=== PATIENT | female | born 2000 | race African-American/Black ===

== ENCOUNTER 2024-08-27 17:49 | Emergency (ER) | payer BC ==
--- OUTSIDE RECORDS SUMMARY | 2024-08-27 17:56 | XMS REPORT | Continuity of Care Document ---
Author Name Unknown Address [address] [facility] [address] [place] [address] [facility] Address [address] [facility] [address] [place] [address] Care Team Providers Care Wearing Apparel Shaker Name Role Phone BOBBI DUDLEY Primary Care Physician Unavailab DR BOBBI Alcantara Attending Clinician Unavailable [phone] Attending Clinician Unavailable DIANE, DR AZUL Attending Clinician Unavailable DR JORGE ALBERTO CONTRERAS Attending Clinician Unavailable ATILIO, DR FINCH Attending Clinician Unavailable DR GERALD SHEPHERD Attending Clinician Unavailable DR LUDY BHAGAT Attending Clinician Unavailable DR BOBBI DUDLEY Admitting Clinician Unavailable DIANE, DR AZUL Admitting Clinician Unavailable ATILIO, DR FINCH Admitting Clinician Unavailable DR GERALD SHEPHERD Admitting Clinician Unavailable OLAYINKA, DR BOSTON Admitting Clinician Unavailable Payers Payer Name Policy Type Policy Number Effective Date Expirati on Date Source [facility] [id number] 2023 00:00:00 Allergies, Adverse Reactions, Alerts Allergy Name Allergy Type Status Severity Reaction(s) Onset Date Inactive Date Treating Clinician Comments Source No Known Allergie s DA Active Unknown 12-15 00:00: 00 [facility] No Known Drug Allergie s MA Active UNKNOWN [facility] Vital Signs Vital Name Observation Time Observation Value Comments S ource Height 2023-08-03 10:41:00 170.18 CM Weight 2023-08-03 10:41:00 81.8 KG Height 2020-11-07 07:40:00 170.18 CM Weight 2020-11-07 07:40:00 99.79 KG Weight 2020-02-20 19:15:00 99.79 KG Height 2020-02-05 10:47:00 167.64 CM Weight 2020-02-05 10:47:00 90.71 KG Encounters Start Date/Time End Date/Time Encounter Type Admission Type Attending [facility] Care Department Encounter ID Source 2022-04-08 09:25:03 Outpatient BOBBI DUDLEY [id number] [facility] [id number] [facility] 2022-01-15 17:26:53 Outpatient BOBBI DUDLEY [id number] [facility] [id number] [facility] 2023-08-03 10:35:00 2023-08-03 12:08:00 Outpatient E JORGE ALBERTO CONTRERAS [facility] [id number] [facility] 2023-08-03 10:35:00 2023-08-03 10:35:00 Outpatient E [facility] [id number] [facility] 2022-01-15 17:35:00 2022-01-15 18:43:00 Outpatient BOBBI SANZ [id number] [facility] SELMA GRANGER [id number] [facility] 2020-11-07 07:39:00 2020-11-07 08:50:00 Outpatient E JOSETTE TRIMBLE [facility] [id number] [facility] 2020-02-20 18:18:00 2020-02-20 21:08:00 Outpatient E GERALD SHEPHERD [facility] [id number] [facility] 2020-02-05 10:37:00 2020-02-05 12:20:00 Outpatient E LUDY BHAGAT [facility] [id number] [facility] Results Test Description Test Time Test Comments Results Result Co mments Source INFLUENZA A AND B OW2023-08-03 11:23:00* Test Item Value Reference Range Interpretation Comme nts INFLUENZ A (test code = INFA) NEGATIVE NEGATIVE INFLUENZ B (test code = INFB) NEGATIVE NEGATIVE DIRECT STREP GROUP AOW2023-08-03 11:23:00* Test Item Value Reference Range Interpretation Comme nts Strep A Ag (test code = STREP) NEGATIVE NEGATIVE SARS-CoV (RAPID ANTIGEN) WH2020-11-07 08:17:00* Test Item Value Reference Range Interpretation Comme nts SARS-CoV (ANTIGEN) (test code = COVAG) NEGATIVE NEGATIVE COVID AG (test code = COVAGC) This test has been marketed under the FDA Emergency Use Authorization (EUA) to meet challenges of the COVID-19 pandemic. The validation standards normally enforced by the FDA and the College of the [place] [employer] (CAP) are more stringent than those required for this test. Therefore, the result should be interpreted with caution and close attention to other clinical and epidemiological data DIRECT STREP GROUP AOW2020-11-07 08:08:00* Test Item Value Reference Range Interpretation Comme nts Strep A Ag (test code = STREP) NEGATIVE NEGATIVE SARS-CoV (RAPID ANTIGEN) WH2020-02-20 20:57:00* Test Item Value Reference Range Interpretation Comme nts SARS-CoV (ANTIGEN) (test code = COVAG) NEGATIVE NEGATIVE COVID AG (test code = COVAGC) This test has been marketed under the FDA Emergency Use Authorization (EUA) to meet challenges of the COVID-19 pandemic. The validation standards normally enforced by the FDA and the College of the [place] [employer] (CAP) are more stringent than those required for this test. Therefore, the result should be interpreted with caution and close attention to other clinical and epidemiological data INFLUENZA A AND B OW2020-02-20 19:59:00* Test Item Value Reference Range Interpretation Comme nts INFLUENZ A (test code = INFA) NEGATIVE NEGATIVE INFLUENZ B (test code = INFB) NEGATIVE NEGATIVE DIRECT STREP GROUP AOW2020-02-20 19:59:00* Test Item Value Reference Range Interpretation Comme nts STREP A AG (test code = STREP) NEGATIVE NEGATIVE BRAIN NATRIURETIC PEPTIDE OW2020-02-05 11:51:00* Test Item Value Reference Range Interpretation Comme nts BNP (test code = OBNP) <5 pg/mL <=100 SARS-CoV (RAPID ANTIGEN) WH2020-02-05 11:50:00* Test Item Value Reference Range Interpretation Comme nts SARS-CoV (ANTIGEN) (test code = COVAG) NEGATIVE NEGATIVE COVID AG (test code = COVAGC) This test has been marketed under the FDA Emergency Use Authorization (EUA) to meet challenges of the COVID-19 pandemic. The validation standards normally enforced by the FDA and the College of the [place] [employer] (CAP) are more stringent than those required for this test. Therefore, the result should be interpreted with caution and close attention to other clinical and epidemiological data [employer] 8 Panel *OW* [id number] 11:44:00* Test Item Value Reference Range Interpretation Comme nts GLUCOSE (test code = GGUL) 142 mg/dL 73-118 H BUN (test code = GBUN) 13 mg/dL 7-22 CREATININE (test code = GCRE) 0.9 mg/dL 0.6-1.2 CK TOTAL (test code = GCK) 171 U/L 30-190 SODIUM (test code = GNA+) 138 mmol/L 128-145 POTASSIUM (test code = GK+) 3.9 mmol/L 3.6-5.1 CHLORIDE (test code = GCL-) 104 mmol/L 98-108 TCO2 (test code = GTC02) 26 mmol/L 18-33 URINE OW2020-02-05 11:42:00* Test Item Value Reference Range Interpretation Comme nts PREG UR (test code = PGU) Negative NEGATIVE D-DIMER TRIAGE OW2020-02-05 11:40:00* Test Item Value Reference Range Interpretation Comme nts D-DIMER (test code = GDDI) 124 ng/mL D-DU <=599 D-DIMER COMMENT (test code = DDCOM) *Level to rule out DVT or PE: <235 ng/mL D-DU* INFLUENZA A AND B OW2020-02-05 11:32:00* Test Item Value Reference Range Interpretation Comme nts INFLUENZ A (test code = INFA) NEGATIVE NEGATIVE INFLUENZ B (test code = INFB) NEGATIVE NEGATIVE GENERAL CHEMISTRY 13 *OW* [id number] 11:29:00* Test Item Value Reference Range Interpretation Comme nts GLUCOSE (test code = GGUL) 143 mg/dL 73-118 H BUN (test code = GBUN) 12 mg/dL 7-22 CREATININE (test code = GCRE) 0.9 mg/dL 0.6-1.2 URIC ACID (test code = GUA) 4.1 mg/dL 2.2-6.6 CALCIUM (test code = GCL+) 9.6 mg/dL 8.0-10.3 ALBUMIN (test code = GALB) 4.0 g/dL 3.5-5.5 PROTEIN (test code = GTP) 7.4 g/dL 6.4-8.1 ALT (test code = GALT) 7 U/L 10-47 L AST (test code = LACEY) 22 U/L 11-38 ALK PHOS (test code = GALP) 55 U/L 42-141 BILI TOTAL (test code = GTBIL) 0.8 mg/dL 0.2-1.6 GGT (test code = GGGT) 17 U/L 5-65 AMYLASE (test code = GAMY) 50 U/L 14-97 DIRECT STREP GROUP AOW2020-02-05 11:28:00* Test Item Value Reference Range Interpretation Comme nts STREP A AG (test code = STREP) NEGATIVE NEGATIVE URINALYSIS W/O MICROSCOPICOW2020-02-05 11:26:00* Test Item Value Reference Range Interpretation Comme nts COLOR (test code = COLU) Yellow YELLOW CLARITY (test code = CLA) Clear CLEAR GLUCOSE UR (test code = UA GLUCOSE) Negative NEGATIVE BILI UR (test code = BILE) Negative NEGATIVE KETONES UR (test code = RENITA) Negative NEGATIVE SP GRAVITY (test code = SPGR) >=1.030 1.005-1.030 PH UR (test code = PH) 6.0 4.5-8.0 PROTEIN UR (test code = PU) Negative NEGATIVE NITRITE UR (test code = NITRITE) Negative NEGATIVE UROBIL UR (test code = GUROQ) 1.0 E.U./dL UROBIL UR (test code = GUROQC) UROBILINOGEN REFERENCE RANGE 0.2 - 1.0 EU/dL BLOOD UR (test code = UA BLOOD) 1+ NEGATIVE A LEUK ES UR (test code = LEUK) Negative NEGATIVE CBC (INCLUDES AUTOMATED DIFFERENTIAL) *2020-02-05 11:21:00* Test Item Value Reference Range Interpretation Comme nts WBC (test code = WBC) 5.0 10\S\3/uL 4.5-11.0 RBC (test code = RBC) 4.37 10\S\6/uL 4.30-5.70 HGB (test code = HBG) 14.0 g/dL 12.0-15.5 HCT (test code = HCT) 42.9 % 35.0-44.0 MCV (test code = MCV) 98.2 fL 81.0-99.0 MCH (test code = MCH) 32.0 pg 27.0-31.0 H MCHC (test code = MCHC) 32.6 g/dL 32.0-36.0 RDW (test code = RDW) 13.6 % 11.5-14.5 PLT (test code = PLT) 268 10\S\3/uL 130-400 MPV (test code = OMPV) 8.5 fL 6.2-10.2 NEUTROP # (test code = NE#) 2.3 10\S\3/uL 1.6-8.0 LYMPH # (test code = LY#) 2.1 10\S\3/uL 1.1-3.5 MID # (test code = GMID#) 0.6 10\S\3/uL 0.0-1.1 GRA % (test code = GRA%) 46.6 % 35.0-73.0 LYMPH % (test code = GLY%) 42.3 % 20.0-55.0 MID % (test code = GMID%) 11.1 % 0.0-10.0 H XR ANKLE LEFT COMPLETE 3 VIEWS *WW*2016-12-15 13:26:38EXAM: XR ANKLE 3 VIEWS, LEFTINDICATION: PainCOMPARISON: None availableTECHNIQUE: AP, lateral and oblique views of the left ankle.FINDINGS: No acute fracture or dislocation is identified. The joint spaces aremaintained. The ankle mortise is preserved. No soft tissue abnormality isidentified.IMPRESSION: No acute osseous abnormality of the left ankle.LOCATION: B2
[2024-08-27] MEDS ORDERED: LIDOCAINE VISCOUS 2% 10ML ORAL SOLN ONE (18:34)
[2024-08-27] MEDS ORDERED: dexAMETHasone 10 MG/ML VIAL ONE (18:34)
[2024-08-27] MEDS ORDERED: IBUPROFEN 400 MG TAB ONE (18:34)
[2024-08-27 19:15] LABS: SARS-CoV-2 Antigen CONTROL BLUE LINE VIS/BG OK; SARS-CoV-2 Antigen Rapid Res Negative (Negative)
--- NOTE | 2024-08-27 19:17 | EDPHYS ---
Physician Documentation [facility] Name: Jose Rafael Woodall Age: 24 yrs Sex: Female : 2000 Arrival Date: 08/27/2024 Time: 17:49 Bed 13 Private MD: ED Physician Robinson Chacon HPI: 08/27 18:08 This 24 yrs old Black Female presents to ER via Ambulatory with complaints of Sore ec2 Throat. 18:08 Patient arrives today for sore throat. Patient reports has been having sore throat that ec2 is worsened over the past several days. Reports congestion as well as cough. No fevers or vomiting.. Historical: - Allergies: 17:58 No Known Allergies; ll1 - Home Meds: 17:58 None [Active]; ll1 - PMHx: 17:58 None; ll1 - PSHx: 17:58 None; ll1 - Immunization history:: Adult Immunizations up to date. - Infectious Disease History:: Denies. - Social history:: Smoking status: Patient denies any tobacco usage or history of. ROS: 18:09 Constitutional: as per hpi ec2 Exam: 18:09 Constitutional: GEN: NAD Head: atraumatic Eyes: EOMI Ears: External ears are normal. ec2 Mouth: Posterior pharyngeal erythema without exudates present. CV: regular rate LUNGS: no respiratory distress ABD: non-distended SKIN: no evidence of rashes MSK: no evidence of trauma Vital Signs: 17:58 BP 141 / 93; Pulse 60; Resp 16; Temp 97.6; Pulse Ox 100% ; Weight 81.65 kg; Height 5 ll1 ft. 7 in. ; Pain 10/10; 19:05 BP 144 / 89; Pulse 65; Resp 17; Temp 98.2(O); Pulse Ox 99% on R/A; rg5 17:58 Body Mass Index 28.19 (81.65 kg, 170.18 cm) ll1 17:58 Pain Scale: Adult ll1 MDM: 17:56 Medical Screening Exam initiated ec2 18:09 Data reviewed: vital signs, nurses notes. ED course: Patient arrives today for ec2 evaluation of sore throat. Examination is revealing for nontoxic individual who is hemodynamically stable. Will obtain viral swab and strep swab. Suspect pharyngitis. Possible viral versus bacterial. 19:16 ED course: Strep swab negative, will d/c to home with symptomatic management for viral ec2 infection. Return precautions given.. 02 17:56 Order name: Influenza Screen (a \T\ B); Complete Time: 19:17 ec2 02 17:56 Order name: SARS RAPID; Complete Time: 19:16 ec2 08/27 17:56 Order name: Strep; Complete Time: 19:16 ec2 08/27 19:18 Order name: Throat Culture EDMS Administered Medications: 18:08 CANCELLED (Physician Discretion): mg IM once ec2 18:45 Drug: Dexamethasone IM 10 mg IM once Route: IM; Site: right deltoid; ph 19:28 Follow up: Response: No adverse reaction; Pain is decreased rg5 18:45 Drug: Lidocaine Mucous Membrane Gel 2 % 1 ea 15 ml Mucous Membrane once Volume: 15 ml; ph Route: Mucous Membrane; 18:45 Drug: Ibuprofen PO 800 mg PO once Route: PO; ph 19:27 Follow up: Response: No adverse reaction; Pain is decreased rg5 Disposition Summary: 08/27/24 19:16 Discharge Ordered Notes: Location: Home ec2 Condition: Stable ec2 Diagnosis - Viral infection, unspecified ec2 Followup: ec2 - With: Private Physician - When: - Reason: Recheck today's complaints Discharge Instructions: - Discharge Summary Sheet ec2 - Viral Illness, Adult ec2 Forms: - Medication Reconciliation Form ec2 - Antibiotic Education ec2 - Prescription Opioid Use ec2 - Patient Portal Instructions ec2 - Leadership Thank You Letter ec2 Prescriptions: - Prednisone 20 mg Oral Tablet - take 2 tablets ORAL route once daily for 5 days; 10 tablet; Refills: 0, Product ec2 Selection Permitted Signatures: Dispatcher [employer] EDMS Viola England RN RN ph Heidy Boyd RN RN ll1 Robinson Chacon MD MD ec2 Bernabe Delcid RN rg5 Corrections: (The following items were deleted from the chart) 17:57 17:57 Influenza Screen (A \T\ B)+BA.LAB.BRZ ordered. EDMS EDMS 17:57 17:57 SARS-COV-2 Antigen Rapid+I.LAB.BRZ ordered. EDMS EDMS 17:57 17:57 Group A Streptococcus Rapid Sc+BA.LAB.BRZ ordered. EDMS EDMS 18:08 18:07 Ketorolac IM 15 mg IM once ordered. ec2 ec2
--- NOTE | 2024-08-27 19:17 | ER ---
Nurse's Notes [facility] Name: Jose Rafael Woodall Age: 24 yrs Sex: Female : 2000 Arrival Date: 08/27/2024 Time: 17:49 Bed 13 Private MD: Diagnosis: Viral infection, unspecified Presentation: 08/27 17:58 Chief complaint: Patient states: Sore throat and R ear pain since last night. ll1 Coronavirus screen: Client denies travel out of the [place] in the last 14 days. sore throat, Client presents with at least one sign or symptom that may indicate coronavirus-19. Standard/surgical mask placed on the client. Ebola Screen: Patient denies travel to an Ebola-affected area in the 21 days before illness onset. Initial Sepsis Screen: Does the patient meet any 2 criteria? No. Patient's initial sepsis screen is negative. Does the patient have a suspected source of infection? No. Patient's initial sepsis screen is negative. Risk Assessment: Do you want to hurt yourself or someone else? Patient reports no desire to harm self or others. Onset of symptoms was August 26, 2024. 17:58 Method Of Arrival: Ambulatory ll1 17:58 Acuity: NE 4 ll1 Triage Assessment: 18:03 General: Appears ill, Behavior is calm, cooperative, appropriate for age. Pain: ll1 Complains of pain in throat Quality of pain is described as aching. EENT: Reports pain when swallowing had pain to R ear, resolved now. Historical: - Allergies: 17:58 No Known Allergies; ll1 - Home Meds: 17:58 None [Active]; ll1 - PMHx: 17:58 None; ll1 - PSHx: 17:58 None; ll1 - Immunization history:: Adult Immunizations up to date. - Infectious Disease History:: Denies. - Social history:: Smoking status: Patient denies any tobacco usage or history of. Screenin:[address] [facility] ED Fall Risk Assessment (Adult) History of falling in the last 3 months, ph including since admission No falls in past 3 months (0 pts) Confusion or Disorientation No (0 pts) Intoxicated or Sedated No (0 pts) Impaired Gait No (0 pts) Mobility Assist Device Used No (0 pt) Altered Elimination No (0 pt) Score/Fall Risk Level 0 - 2 = Low Risk Oriented to surroundings, Maintained a safe environment, Hourly rounding (assess needs \T\ fall precautionary measures) done. Abuse screen: Denies threats or abuse. Denies injuries from another. Nutritional screening: No deficits noted. Tuberculosis screening: No symptoms or risk factors identified. Assessment: 18:43 General: Appears in no apparent distress. Behavior is calm, cooperative. Pain: ph Complains of pain in throat. Neuro: Level of Consciousness is awake, alert, obeys commands, Oriented to person, place, time, situation. Cardiovascular: Capillary refill < 3 seconds in bilateral fingers Patient's skin is warm and dry. Respiratory: Airway is patent Respiratory effort is even, unlabored, Respiratory pattern is regular, symmetrical, Breath sounds are clear bilaterally. GI: No signs and/or symptoms were reported involving the gastrointestinal system. EENT: Throat is reddened Reports pain when swallowing. Derm: Skin is pink, warm \T\ dry. 19:05 General: Appears in no apparent distress. comfortable, Behavior is calm, cooperative, rg5 appropriate for age. 19:05 Pain: Complains of pain in throat. Neuro: Level of Consciousness is awake, alert, obeys rg5 commands, Oriented to person, place, time, situation. Cardiovascular: Capillary refill Patient's skin is warm and dry. Respiratory: Airway is patent Trachea midline Respiratory effort is even, unlabored, Respiratory pattern is regular, symmetrical. GI: No signs and/or symptoms were reported involving the gastrointestinal system. : No signs and/or symptoms were reported regarding the genitourinary system. EENT: Throat is reddened Reports pain when swallowing. Derm: Skin is intact, Skin is dry, Skin is normal, Skin temperature is warm. Musculoskeletal: Circulation, motion, and sensation intact. Range of motion: intact in all extremities. Vital Signs: 17:58 BP 141 / 93; Pulse 60; Resp 16; Temp 97.6; Pulse Ox 100% ; Weight 81.65 kg; Height 5 ll1 ft. 7 in. ; Pain 10/10; 19:05 BP 144 / 89; Pulse 65; Resp 17; Temp 98.2(O); Pulse Ox 99% on R/A; rg5 17:58 Body Mass Index 28.19 (81.65 kg, 170.18 cm) ll1 17:58 Pain Scale: Adult ll1 ED Course: 17:56 Patient arrived in ED. mr 17:56 Robinson Chacon MD is Attending Physician. ec2 17:58 Arm band placed on. ll1 17:59 Triage completed. ll1 18:05 Viola England RN is Primary Nurse. ph 18:44 Patient has correct armband on for positive identification. Bed in low position. Call ph light in reach. Side rails up X 1. Pulse ox on. NIBP on. Door closed. Noise minimized. Warm blanket given. 18:45 COVID swab sent to lab. Flu and/or RSV swab sent to lab. Strep swab sent to lab. ph 18:45 Strep Sent. ph 18:45 SARS RAPID Sent. ph 18:45 Influenza Screen (a \T\ B) Sent. ph 19:27 Provided Education on: post er care. rg5 19:27 No provider procedures requiring assistance completed. Patient did not have IV access rg5 during this emergency room visit. Administered Medications: 18:08 CANCELLED (Physician Discretion): [id number] mg IM once ec2 18:45 Drug: Dexamethasone IM 10 mg IM once Route: IM; Site: right deltoid; ph 19:28 Follow up: Response: No adverse reaction; Pain is decreased rg5 18:45 Drug: Lidocaine Mucous Membrane Gel 2 % 1 ea 15 ml Mucous Membrane once Volume: 15 ml; ph Route: Mucous Membrane; 18:45 Drug: Ibuprofen PO 800 mg PO once Route: PO; ph 19:27 Follow up: Response: No adverse reaction; Pain is decreased rg5 Medication: 18:44 VIS not applicable for this client. ph Outcome: 19:16 Discharge ordered by . ec2 19:41 Discharged to home ambulatory, rg5 19:41 Condition: stable 19:41 Discharge instructions given to patient, Instructed on discharge instructions, Demonstrated understanding of instructions, medications, Prescriptions given X 1, 19:42 Patient left the ED. rg5 Signatures: Estefania Mckoy, Igor Costa mr Viola England RN RN Heidy Boyd RN RN 1 Robinson Chacon MD MD 2 Bernabe Delcid RN RN rg5
[2024-08-27 19:48] VITALS: BP 144/89; TEMP 98.2; O2SAT 99
== END 2024-08-27 19:42 | disposition home or self-care (01) ==
LOC: ER 17:49
DX: B34.9 Viral infection, unspecified (principal); Z11.52 Encounter for screening for COVID-19
CPT/HCPCS: 87070; 36415; 87081; 87804 ×2; 96372; 99284; 87811; J1100

== ENCOUNTER 2024-09-03 19:54 | Emergency (ER) | payer BC ==
--- OUTSIDE RECORDS SUMMARY | 2024-09-03 19:58 | XMS REPORT | Continuity of Care Document ---
Author Name Unknown Address [address] [facility] [address] [place] [address] [facility] Address [address] [facility] [address] [place] [address] Care Team Providers Care Carpenter Streetcar Name Role Phone BOBBI DUDLEY Primary Care Physician Unavailab DR BOBBI Alcantara Attending Clinician Unavailable [phone] Attending Clinician Unavailable DIANE, DR AZUL Attending [...] Number Effective Date Expirati on Date Source [facility] [id number] 2023 00:00:00 Allergies, Adverse Reactions, Alerts Allergy Name Allergy Type Status Severity Reaction(s) Onset Date Inactive Date Treating Clinician Comments Source No Known Allergie s DA Active Unknown 12-15 00:00: 00 [facility] No Known Drug Allergie s MA Active UNKNOWN [facility] Vital Signs Vital Name Observation Time Observation Value Comments S ource Height 2023-08-03 10:41:00 170.18 CM Weight 2023-08-03 10:41:00 81.8 KG Height 2020-11-07 07:40:00 170.18 CM Weight 2020-11-07 07:40:00 99.79 KG Weight 2020-02-20 19:15:00 99.79 KG Height 2020-02-05 10:47:00 167.64 CM Weight 2020-02-05 10:47:00 90.71 KG Encounters Start Date/Time End Date/Time Encounter Type Admission Type Attending [facility] Care Department Encounter ID Source 2022-04-08 09:25:03 Outpatient BOBBI DUDLEY [id number] [facility] [id number] [facility] 2022-01-15 17:26:53 Outpatient BOBBI DUDLEY [id number] [facility] [id number] [facility] 2023-08-03 10:35:00 2023-08-03 12:08:00 Outpatient E JORGE ALBERTO CONTRERAS [facility] [id number] [facility] 2023-08-03 10:35:00 2023-08-03 10:35:00 Outpatient E [facility] [id number] [facility] 2022-01-15 17:35:00 2022-01-15 18:43:00 Outpatient BOBBI SANZ [id number] [facility] SELMA GRANGER [id number] [facility] 2020-11-07 07:39:00 2020-11-07 08:50:00 Outpatient E JOSETTE TRIMBLE [facility] [id number] [facility] 2020-02-20 18:18:00 2020-02-20 21:08:00 Outpatient E GERALD SHEPHERD [facility] [id number] [facility] 2020-02-05 10:37:00 2020-02-05 12:20:00 Outpatient E LUDY BHAGAT [facility] [id number] [facility] Results Test Description Test Time Test Comments [...] the FDA and the [employer] the [employer] (CAP) are more stringent than those [...] the FDA and the [employer] [place] [employer] (CAP) are more stringent than those [...] the FDA and the [employer] (CAP) are more stringent than those required for this test. Therefore, the result should be interpreted with caution and close attention to other clinical and epidemiological data [employer] 8 Panel *OW* [id number] 11:44:00* Test Item Value Reference Range Interpretation [...] INFB) NEGATIVE NEGATIVE GENERAL CHEMISTRY 13 *OW* [id number] 11:29:00* Test Item Value Reference Range Interpretation [...]
[2024-09-03] MEDS ORDERED: NA CHLORIDE 0.9% 1,000 ML ONE (20:13)
[2024-09-03] MEDS ORDERED: ONDANSETRON 4 MG/2 ML VIAL ONE (20:13)
[2024-09-03] MEDS ORDERED: KETOROLAC 30 MG/ML INJ ONE (20:13)
[2024-09-03 20:53] LABS: SARS-CoV-2 Antigen CONTROL BLUE LINE VIS/BG OK; SARS-CoV-2 Antigen Rapid Res Negative (Negative)
--- NOTE | 2024-09-03 21:55 | RAD REPORT ---
EXAMINATION: TWO VIEW CHEST XR CLINICAL INDICATION: Congestion;Cough TECHNIQUE: 2 views of the chest was performed. COMPARISON: No prior exam. FINDINGS: The lungs are well inflated and clear. The heart is upper limit of normal in size. No displaced fract ures evident. IMPRESSION: No acute or significant abnormalities.
[2024-09-03] MEDS ORDERED: HYDROCODONE/CHLORPHEN 5 ML/OSYR ONE (22:04)
--- NOTE | 2024-09-03 22:28 | ER ---
Nurse's Notes [facility] Name: Jose Rafael Woodall Age: 24 yrs Sex: Female : 2000 Arrival Date: 09/03/2024 Time: 19:54 Bed 6 Private MD: Diagnosis: Acute upper respiratory infection, unspecified Presentation: 09/03 20:05 Chief complaint: Patient states: sore throat, headache, nausea x1 week. Coronavirus al5 screen: congestion, cough unrelated to allergies, nausea, sore throat. Ebola Screen: No symptoms or risks identified at this time. Initial Sepsis Screen: Does the patient meet any 2 criteria? No. Patient's initial sepsis screen is negative. Does the patient have a suspected source of infection? No. Patient's initial sepsis screen is negative. Risk Assessment: Do you want to hurt yourself or someone else? Patient reports no desire to harm self or others. Note was here last week for the same thing, was swabbed and all came back negative. Onset of symptoms was August 27, 2024. 20:05 Method Of Arrival: Ambulatory al5 20:05 Acuity: NE 3 al5 Triage Assessment: 20:08 General: Appears in no apparent distress. comfortable, ill, Behavior is calm, al5 cooperative. Pain: Complains of pain in head. EENT: No signs and/or symptoms were reported regarding the EENT system. Neuro: Level of Consciousness is awake, alert, obeys commands, Oriented to person, place, time, situation. Cardiovascular: Capillary refill < 3 seconds Patient's skin is warm and dry. Respiratory: Reports cough that is congestion, sore throat Airway is patent Respiratory effort is even, unlabored, Respiratory pattern is regular, symmetrical. GI: Abdomen is flat, non-distended, Reports nausea. : No signs and/or symptoms were reported regarding the genitourinary system. Derm: Skin is intact, is healthy with good turgor, Skin is pink, warm \T\ dry. normal. Musculoskeletal: No signs and/or symptoms reported regarding the musculoskeletal system. 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 - Infectious Disease History:: Denies. - Social history:: Smoking status: Patient denies any tobacco usage or history of. Patient uses street drugs, marijuana, has not been smoking since she has been sick. Screenin:10 [facility] ED Fall Risk Assessment (Adult) History of falling in the last 3 months, al5 including since admission No falls in past 3 months (0 pts) Confusion or Disorientation No (0 pts) Intoxicated or Sedated No (0 pts) Impaired Gait No (0 pts) Mobility Assist Device Used No (0 pt) Altered Elimination No (0 pt) Score/Fall Risk Level 0 - 2 = Low Risk Oriented to surroundings, Maintained a safe environment, Hourly rounding (assess needs \T\ fall precautionary measures) done. Abuse screen: Denies threats or abuse. Denies injuries from another. Nutritional screening: No deficits noted. Tuberculosis screening: No symptoms or risk factors identified. Assessment: 20:10 Reassessment: see triage assessment. al5 21:02 Reassessment: Patient appears in no apparent distress at this time. Patient and/or bm8 family updated on plan of care and expected duration. Pain level reassessed. Patient is alert, oriented x 3, equal unlabored respirations, skin warm/dry/pink. Patient denies pain at this time. Patient states feeling better. Patient states symptoms have improved. GI: Patient currently denies nausea. 22:07 Reassessment: Patient appears in no apparent distress at this time. Patient and/or bm8 family updated on plan of care and expected duration. Pain level reassessed. Patient is alert, oriented x 3, equal unlabored respirations, skin warm/dry/pink. Patient denies pain at this time. Patient states feeling better. Patient states symptoms have improved. 22:57 Reassessment: Patient appears in no apparent distress at this time. No changes from bm8 previously documented assessment. Patient and/or family updated on plan of care and expected duration. Pain level reassessed. Patient is alert, oriented x 3, equal unlabored respirations, skin warm/dry/pink. Patient denies pain at this time. Patient states feeling better. Patient states symptoms have improved. Vital Signs: 20:05 BP 130 / 107; Pulse 72; Resp 16; Temp 98; Pulse Ox 100% on R/A; Weight 81.65 kg; Height al5 5 ft. 7 in. ; 21:02 BP 119 / 86; Pulse 54; Resp 18; Temp 98; Pulse Ox 100% ; Pain 0/10; bm8 22:07 BP 123 / 78; Pulse 59; Resp 18; Temp 98; Pulse Ox 100% ; Pain 0/10; bm8 22:57 BP 125 / 78; Pulse 61; Resp 17; Temp 98.1; Pulse Ox 100% ; Pain 0/10; bm8 20:05 Body Mass Index 28.19 (81.65 kg, 170.18 cm) al5 21:02 Pain Scale: Adult bm8 22:07 Pain Scale: Adult bm8 22:57 Pain Scale: Adult bm8 Charlton Coma Score: 21:02 Eye Response: spontaneous(4). Motor Response: obeys commands(6). Verbal Response: bm8 oriented(5). Total: 15. 22:07 Eye Response: spontaneous(4). Motor Response: obeys commands(6). Verbal Response: bm8 oriented(5). Total: 15. 22:57 Eye Response: spontaneous(4). Motor Response: obeys commands(6). Verbal Response: bm8 oriented(5). Total: 15. ED Course: 19:59 Patient arrived in ED. im 20:00 Christy Dhaliwal PA-C is PHCP. sb4 20:00 Nolan Hairston MD is Attending Physician. sb4 20:05 Niurka Gilman RN is Primary Nurse. al5 20:05 Primary Nurse role handed off by Niurka Gilman RN bm8 20:05 Jackson Lee RN is Primary Nurse. bm8 20:05 Primary Nurse role handed off by Jackson Lee RN al5 20:05 Niurka Gilman RN is Primary Nurse. al5 20:08 Triage completed. al5 20:10 Arm band placed on right wrist. Patient placed in the treatment room, on a stretcher, al5 in view of staff members, on pulse oximetry. 20:10 Patient has correct armband on for positive identification. Bed in low position. Call al5 light in reach. Side rails up X2. Provided Education on: plan of care. 20:10 No provider procedures requiring assistance completed. al5 20:28 COVID swab sent to lab. Flu and/or RSV swab sent to lab. Strep swab sent to lab. bm8 Inserted saline lock: 20 gauge in right antecubital area, using aseptic technique. Blood collected. Flushed with 10 mL NS. Patient maintains SpO2 saturation greater than 95% on room air. 21:02 Client placed on continuous cardiac and pulse oximetry monitoring. NIBP monitoring bm8 applied. Pulse ox on. NIBP on. 21:18 Chest Pa And Lat (2 Views) XRAY In Process Unspecified. EDMS 22:57 Provided Education on: post er care. bm8 22:57 IV discontinued, intact, bleeding controlled, No redness/swelling at site. Pressure bm8 dressing applied. Administered Medications: 20:27 Drug: Ketorolac IVP 15 mg IVP once Route: IVP; Site: right antecubital; bm8 21:03 Follow up: Response: No adverse reaction bm8 20:27 Drug: Ondansetron IVP 4 mg IVP once; over 2 minutes Route: IVP; Site: right antecubital;bm8 21:03 Follow up: Response: No adverse reaction bm8 20:28 Drug: NS 0.9% IV 1000 ml IV at 1000 ml once; to be given as a bolus over 60 minutes bm8 Route: IV; Rate: 1000 ml; Site: right antecubital; 21:03 Follow up: Response: No adverse reaction; IV Status: Completed infusion; IV Intake: bm8 1000ml 22:06 Drug: Tussionex Pennkinetic ER PO Suspension 5 ml PO once Route: PO; bm8 22:09 Follow up: Response: No adverse reaction bm8 Medication: 20:10 VIS not applicable for this client. al5 Intake: 21:03 IV: 1000ml; Total: 1000ml. bm8 Outcome: 22:27 Discharge ordered by . sb4 22:57 Discharged to home ambulatory, bm8 22:57 Condition: stable 22:57 Discharge instructions given to patient, Instructed on discharge instructions, follow up and referral plans. no drinking with medication, no driving heavy equipment, medication usage, safety practices, Demonstrated understanding of instructions, follow-up care, medications, Prescriptions given X 3, 22:59 Patient left the ED. bm8 Signatures: Dispatcher [employer] EDChristy Chow PA-C PA-C sb4 Mendoza, [facility], Jackson, RN RN bm8 Niurka Gilman, RN RN al5
--- NOTE | 2024-09-03 22:28 | EDPHYS ---
Physician Documentation [facility] Name: Jose Rafael Woodall Age: 24 yrs Sex: Female : 2000 Arrival Date: 09/03/2024 Time: 19:54 Bed 6 Private MD: ED Physician Nolan Hairston HPI: 09/03 21:25 This 24 yrs old Black Female presents to ER via Ambulatory with complaints of Nausea, sb4 Headache, Throat pain, Cough, Congestion. 21:25 flu like symptoms x 1 week- cough, congestion, sore throat, headache, nausea. was seen sb4 here 1 week ago for similar symptoms, had negative swabs, was discharged with prednisone rx. states her symptoms have not improved. 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 - Infectious Disease History:: Denies. - Social history:: Smoking status: Patient denies any tobacco usage or history of. Patient uses street drugs, marijuana, has not been smoking since she has been sick. ROS: 21:26 Cardiovascular: Negative for chest pain, palpitations, and edema, sb4 21:26 Constitutional: Positive for body aches, fever, 21:26 ENT: Positive for sinus congestion, sore throat, 21:26 Respiratory: Positive for cough, 21:26 Abdomen/GI: Positive for nausea, 21:26 Neuro: Positive for headache, 21:26 All other systems are negative, Exam: 21:26 Head/Face: Normocephalic, atraumatic. Eyes: Extra-ocular motions intact. Periorbital sb4 areas with no swelling, redness, or edema. ENT: Mucous membranes moist. Cardiovascular: Regular rate and rhythm with a normal S1 and S2. Respiratory: No increased work of breathing, no retractions or nasal flaring. Abdomen/GI: Soft, non-tender, no distension. Skin: Warm, dry with normal turgor. Normal color with no rashes, no lesions, and no evidence of cellulitis. 21:26 Constitutional: The patient appears alert, awake, obviously ill, Vital Signs: 20:05 BP 130 / 107; Pulse 72; Resp 16; Temp 98; Pulse Ox 100% on R/A; Weight 81.65 kg; Height al5 5 ft. 7 in. ; 21:02 BP 119 / 86; Pulse 54; Resp 18; Temp 98; Pulse Ox 100% ; Pain 0/10; bm8 22:07 BP 123 / 78; Pulse 59; Resp 18; Temp 98; Pulse Ox 100% ; Pain 0/10; bm8 22:57 BP 125 / 78; Pulse 61; Resp 17; Temp 98.1; Pulse Ox 100% ; Pain 0/10; bm8 20:05 Body Mass Index 28.19 (81.65 kg, 170.18 cm) al5 21:02 Pain Scale: Adult bm8 22:07 Pain Scale: Adult bm8 22:57 Pain Scale: Adult bm8 Mirela Coma Score: 21:02 Eye Response: spontaneous(4). Motor Response: obeys commands(6). Verbal Response: bm8 oriented(5). Total: 15. 22:07 Eye Response: spontaneous(4). Motor Response: obeys commands(6). Verbal Response: bm8 oriented(5). Total: 15. 22:57 Eye Response: spontaneous(4). Motor Response: obeys commands(6). Verbal Response: bm8 oriented(5). Total: 15. MDM: 20:01 Medical Screening Exam initiated sb4 22:27 Data reviewed: vital signs, nurses notes, lab test result(s), radiologic studies, and sb4 as a result, I will discharge patient. Counseling: I had a detailed discussion with the patient and/or guardian regarding the historical points, exam findings, and any diagnostic results supporting the discharge/admit diagnosis, lab results, radiology results, the need for outpatient follow up, for definitive care, to return to the emergency department if symptoms worsen or persist or if there are any questions or concerns that arise at home. 09/03 20:05 Order name: SARS RAPID; Complete Time: 20:54 sb4 09/03 20:05 Order name: Flu; Complete Time: 20:54 sb4 09/03 20:05 Order name: Strep; Complete Time: 20:54 sb4 09/03 20:52 Order name: Throat Culture EDMS 09/03 20:05 Order name: Chest Pa And Lat (2 Views) XRAY; Complete Time: 21:56 sb4 09/03 20:05 Order name: IV Start; Complete Time: 20:28 sb4 Administered Medications: 20:27 Drug: Ketorolac IVP 15 mg IVP once Route: IVP; Site: right antecubital; bm8 21:03 Follow up: Response: No adverse reaction bm8 20:27 Drug: Ondansetron IVP 4 mg IVP once; over 2 minutes Route: IVP; Site: right antecubital;bm8 21:03 Follow up: Response: No adverse reaction bm8 20:28 Drug: NS 0.9% IV 1000 ml IV at 1000 ml once; to be given as a bolus over 60 minutes bm8 Route: IV; Rate: 1000 ml; Site: right antecubital; 21:03 Follow up: Response: No adverse reaction; IV Status: Completed infusion; IV Intake: bm8 1000ml 22:06 Drug: Tussionex Pennkinetic ER PO Suspension 5 ml PO once Route: PO; bm8 22:09 Follow up: Response: No adverse reaction bm8 Disposition: 09/04 08:45 Co-signature as Attending Physician, Nolan Hairston MD I agree with the assessment and giovana plan of care. Disposition Summary: 09/03/24 22:27 Discharge Ordered Notes: Location: Home sb4 Problem: new sb4 Symptoms: have improved sb4 Condition: Stable sb4 Diagnosis - Acute upper respiratory infection, unspecified sb4 Followup: sb4 - With: Emergency Department - When: As needed - Reason: Trouble breathing, Worsening of condition Discharge Instructions: - Discharge Summary Sheet sb4 - Upper Respiratory Infection, Adult, [id number] sb4 Forms: - Antibiotic Education sb4 - Patient Portal Instructions sb4 - Leadership Thank You Letter sb4 Prescriptions: - Tessalon Perles 100 mg Oral Capsule - take 1 capsule ORAL route every 8 hours As needed; 15 capsule; Refills: 0, sb4 Product Selection Permitted - Loratadine 10 mg Oral Tablet - take 1 tablet ORAL route once daily; 14 tablet; Refills: 0, Product Selection sb4 Permitted - Zithromax Z-Darius 250 mg Oral Tablet - take 1 tablet ORAL route as directed for 5 days Day 1 - take two (2) tablets sb4 one time. Day 2, 3, 4 , 5 take one (1) tablet once daily.; 6 tablet; Refills: 0, Product Selection Permitted Signatures: Dispatcher [employer] Nolan Espino MD MD cha Brown, Sophia PAHemant PAArleneC sb4 Jackson Lee, RN RN bm8 Niurka Gilman RN RN al5 Corrections: (The following items were deleted from the chart) 09/03 21:26 21:25 flu like symptoms x 1 week- cough, congestion, sore throat, headache, nausea. was sb4 seen here 1 week ago for similar symptoms, had negative swabs. sb4
[2024-09-03 23:08] VITALS: O2SAT 100
[2024-09-03 23:12] VITALS: BP 125/78; TEMP 98.1
== END 2024-09-03 22:59 | disposition home or self-care (01) ==
LOC: ER 19:54
DX: J06.9 Acute upper respiratory infection, unspecified (principal); Z11.52 Encounter for screening for COVID-19
CPT/HCPCS: 96361; 87070; 36415; 87081; 87804 ×2; 71046; 96375; 96374; 99284; 87811; J2405; J7030